=== PATIENT | female | born 1975 | race Asian ===

== ENCOUNTER → 2016-09-13 | Outpatient (CLI) | payer BC | LOC: MC.RAD 13:59 | DX: N63 Unspecified lump in breast (principal) ==

== ENCOUNTER → 2017-05-11 | Outpatient (CLI) | payer BC | LOC: MC.RAD 07:57 | DX: Z12.31 Encounter for screening mammogram for malignant neoplasm of breast (principal) ==

== ENCOUNTER → 2018-01-02 | Outpatient (CLI) | payer BC | LOC: MC.RAD 12:52 | DX: N63.10 Unspecified lump in the right breast, unspecified quadrant (principal) ==

== ENCOUNTER → 2019-06-11 | Outpatient (CLI) | payer BC | LOC: MC.RAD 14:30 | DX: Z12.31 Encounter for screening mammogram for malignant neoplasm of breast (principal) ==

== ENCOUNTER → 2020-06-26 | Outpatient (CLI) | payer BC | LOC: MC.RAD 10:18 | DX: Z12.31 Encounter for screening mammogram for malignant neoplasm of breast (principal) ==

== ENCOUNTER → 2021-08-03 | Outpatient (CLI) | payer OTHER | LOC: MC.RAD 09:15 | DX: Z12.31 Encounter for screening mammogram for malignant neoplasm of breast (principal) ==